=== PATIENT | female | born 1945 | race Two or more races ===

== ENCOUNTER 2019-04-02 13:42 | Emergency (ER) | payer OTHER ==
[~2019-04-02] VITALS: Ht 162.6 cm; Wt 102.1 kg
[2019-04-02] MEDS ORDERED: LEVOTHYROXINE25 MCG (14:01)
== END 2019-04-02 15:41 | disposition home or self-care (01) ==
LOC: ER 13:42
DX: M79.662 Pain in left lower leg (principal)